=== PATIENT | female | born 1940 | race Caucasian/White ===

== ENCOUNTER → 2017-06-28 06:42 | Outpatient (CLI) | payer MEDICARE, OTHER, SELFPAY ==
--- NOTE | 2017-06-28 06:44 | ECHOD_ITS ---
Reason For Study: CHEST PAIN Procedure This was a 2D Doppler, Color Flow transthoracic echocardiogram. Exam performed in department. Left Ventricle Normal LV size. Left ventricular systolic function is normal. The estimated ejection fraction is 55 %. No evidence for diastolic dysfunction. No regional wall motion abnormalities noted. Right Ventricle Normal RV size. Normal systolic function. Atria Normal left atrium. Normal right atrium. Mitral Valve Normal mitral valve. Tricuspid Valve Normal tricuspid valve. Mild (1+) tricuspid valve insufficiency. Pulmonary artery systolic pressure is 28 mmHg. Aortic Valve Trisinus/trileaflet aortic valve. Mild diffuse aortic valve thickening. Mild (1+) aortic valve insufficiency. Pulmonic Valve Normal pulmonic valve. Great Vessels Normal aortic root. The pulmonary artery is normal size. Normal inferior vena cava. Pericardium/Pleural No pericardial effusion. MMode/2D Measurements & Calculations LVIDd: 4.9 cm IVSd: 1.0 cm Ao root diam: 2.7 cm LVIDs: 3.3 cm LVPWd: 1.0 cm LA dimension: 3.2 cm RVDd: 3.2 cm FS: 32.2 % LAV(MOD-bp): 49.5 ml LA A4 area: 14.9 cm2 RA A4 area: 16.5 cm2 LAV(MOD-bp) Indexed: 27.6 ml/m2 LAV(MOD-sp2): 54.0 ml LAV(MOD-sp4): 41.3 ml Time Measurements MV dec time: 0.20 sec Doppler Measurements & Calculations MV E max yassine: 59.3 cm/sec Lat Peak E' Yassine: 5.7 cm/sec Med Peak E' Yassine: 6.3 cm/sec MV A max yassine: 91.1 cm/sec E/E' lat: 10.4 E/E' med: 9.5 MV E/A: 0.65 Ao V2 max: 135.8 cm/sec AI max ysasine: 530.1 cm/sec LV V1 max: 104.6 cm/sec Ao max P.4 mmHg AI max P.5 mmHg LV V1 max P.4 mmHg AI dec slope: 315.9 cm/sec2 AI P1/2t: 491.5 msec PA V2 max: 75.4 cm/sec TR max yassine: 242.5 cm/sec TR max P.7 mmHg Interpretation Summary Normal LV size. Left ventricular systolic function is normal. The estimated ejection fraction is 55 %. No evidence for diastolic dysfunction. Mild (1+) aortic valve insufficiency. Ordering Physician: Osvaldo Calhoun Referring Physician: Rich Ellis M.D. Performed By: Christine Gipson, NAY, RVT
--- NOTE | 2017-06-28 09:45 | RAD_ITS ---
XR Chest 2 Views INDICATION: CHEST PAIN, RBBB COMPARISON: None FINDINGS: Heart size and pulmonary vascularity are within normal limits. The lungs are clear without evidence of airspace consolidation or pleural effusion. The osseous structures are grossly unremarkable. RAD/Chest PA and Lateral IMPRESSION: No radiographic evidence of acute intrathoracic disease. at 1814 Reported and signed by: Ramona Oakes MD Electronically Signed: Ramona Oakes MD at 17:13 EST Tel , Service support ,
--- NOTE | 2017-06-28 14:16 | STRESSREP_ITS ---
Stress Test Report Exercise myocardial perfusion stress test. 77-year-old lady with a history of abnormal EKG. Stress protocol: Resting EKG demonstrates sinus rhythm with rate of 60 bpm right bundle branch block. The resting blood pressure is 146/80 mmHg. The patient exercised according to the regular Marc protocol for a total duration of 6 minutes completing stage II of the Marc protocol. The maximum heart rate attained was 151 beats minute which is 107% of the maximum predicted heart rate the maximum workload attained was 7 metabolic equivalents. At rest there were no ST or T- wave changes noted suggest ischemia at peak exercise no ST or T-wave changes were noted suggest ischemia. No clinical angina was noted the test was terminated due to leg fatigue. The resting blood pressure is 146/80 with a peak blood pressure 178/98 mmHg. The rate pressure product was 24,700. Myocardial perfusion protocol: 11.7 mCi of technetium 99m sestamibi was injected at rest. The patient exercised for 6 minutes attaining 107% maximum predicted heart rate and at peak exercise 33.4 mCi of technetium 99m sestamibi was injected. Stress images were obtained. Stress and rest images were reconstructed and compared in the short axis vertical long and horizontal long axis. Gated images were also obtained. Perfusion SPECT analysis: Review of the stress images demonstrate normal uptake of tracer noted in all areas of the myocardium. A thin portion of the apex has mildly reduced perfusion on the stress and resting images. No reversibility is noted suggest ischemia no previous infarct is noted. Gated SPECT analysis: The gated ejection fraction is noted be 59%. Conclusion: Exercise myocardial perfusion stress test with no evidence of ischemia at a moderate workload. Preserved ejection fraction.
== END ==
PROVIDERS: Family Provider Internal Medicine; PCP Internal Medicine; Visit Provider Internal Medicine Cardiovascular Disease
DX: R07.89 Other chest pain (principal); I45.10 Unspecified right bundle-branch block
CPT/HCPCS: 71046; 78452; 93017; 93306; A9500; A4216

== ENCOUNTER → 2018-07-11 07:48 | Outpatient (CLI) | payer MEDICARE, OTHER, SELFPAY ==
[2018-07-05 15:28] VITALS: BMI 25.7
[2018-07-11 10:11] LABS: Absolute Lymphocyte Count 2.08 X10^3/ul (0.83-4.51); Absolute Neutrophil Count 2.2 X10^3/uL (2.0-7.7); Basophil# 0.05 X10^3/uL; Eosinophil# 0.17 X10^3/uL; Eosinophils% 3.3 % (0-5); Hematocrit 40.7 % (37-47); Hemoglobin 13.4 g/dl (12.0-15.0); Lymphocyte # 2.08 X10^3/ul (4.0); Lymphocyte % 40.2 % (19-41); Mean Corp Hgb Conc 32.9 g/gl (32-36); Mean Corpuscular Hgb 31.2 pg (27.0-32.0); Mean Corpuscular Volume 94.9 fL (81-99); Mean Platelet Vol. 10.2 fl (6.2-12.0); Monocyte% 13.5 % (0-10); Neutrophil # 2.17 X10^3/uL (2.7-7.7); Neutrophil % 41.8 % (47-70); Platelet Count 203 K/mm3 (150-450); RBC Distribution Width CV 12.3 % (11.6-14.6); RBC Distribution Width SD 41.8 fl (35.1-43.9); Red Blood Count 4.29 M/mm3 (4.2-5.4); White Blood Count 5.2 K/mm3 (4.4-11.0)
[2018-07-11 10:13] LABS: POSITIVE COUNT NO; POSITIVE DIFFERENTIAL NO; POSITIVE MORPHOLOGY NO
[2018-07-11 10:44] LABS: ALB/GLOB Ratio 1.2 RATIO (0.9-2.4); AST(SGOT) 27 U/L (15-37); Alanine Aminotransfer ALT/SGPT 26 U/L (13-56); Albumin, Serum 3.8 g/dL (3.2-5.0); Alkaline Phosphatase 45 U/L (45-117); Anion Gap 7 (5-15); BUN 14 mg/dL (7-18); BUN/Creat Ratio 16.2 RATIO (10-20); Calcium,Total 8.8 mg/dL (8.5-10.1); Chloride 103 mmol/L (98-107); Cholesterol 231 mg/dL (200); Creatinine, Serum 0.86 mg/dL (0.55-1.02); EST Glomerular Filtration Rate 67 mL/min (>60); Est Glom Filt Rate - Afr Amer 81 mL/min (>60); Ferritin 89 ng/mL (8-252); Globulin 3.2 g/dL (2.2-4.2); Glucose 87 mg/dL (74-106); High Density Lipoprotein 97 mg/dL; Potassium 3.8 mmol/L (3.5-5.1); Sodium Level 139 mmol/L (136-145); Thyroid Stim Hormone (TSH) 4.43 uIU/mL (0.358-3.74); Triglycerides 76 mg/dL; Very Low Density Lipoprotein 15 mg/dL (5-40)
[2018-07-11 10:55] LABS: Vitamin D,25 Hydroxy 29.8 ng/mL (29.95-100.01)
== END ==
PROVIDERS: Family Provider Family Medicine; PCP Family Medicine; Referring Provider Family Medicine; Visit Provider Family Medicine
DX: R07.89 Other chest pain (principal); M81.0 Age-related osteoporosis without current pathological fracture; I10 Essential (primary) hypertension; D64.9 Anemia, unspecified; Z87.19 Personal history of other diseases of the digestive system
CPT/HCPCS: 36415; 80053; 80061; 82306; 82728; 84443; 85025

== ENCOUNTER → 2018-08-21 | Outpatient (CLI) | payer MEDICARE, OTHER, SELFPAY ==
[2018-07-05 15:28] VITALS: BMI 25.7
--- NOTE | 2018-08-21 13:35 | BI_ITS ---
MAMMOGRAPHY - BILATERAL SCREENING REASON FOR EXAM: Female, 78 years old. Routine annual screening examination. PERTINENT HISTORY: Non-contributory. TECHNIQUE: Digital bilateral breast silvana (3D mammographic acquisition) in the CC and MLO projections. 2-D mediolateral oblique (MLO) and craniocaudad (CC) views of both breasts were obtained. CAD: Full Field Digital Mammography with Computer Added Detection was performed. COMPARISON: No comparison mammograms available at this time. If any prior films become available, an addendum to this report can be generated. FINDINGS: Breast Composition: There are scattered areas of fibroglandular density. There are no dominant masses or suspicious calcifications. No other significant abnormalities are identified. BI/SCREENING MAMM (CAD), BILAT IMPRESSION: Negative screening mammogram. Yearly followup mammogram recommended. (A) ASSESSMENT CATEGORY: BIRADS Category 1: Negative. A letter regarding these results will be sent to the patient by the facility within 30 days. Approximately 10% of breast cancers are not detected by mammography. A normal mammogram should not delay biopsy of a clinically suspicious abnormality. [id number] Electronically Signed: Sha Benito, at 10:06 EDT , Service support ,
== END | disposition home or self-care (01) ==
LOC: OPBI 13:34
PROVIDERS: Family Provider Family Medicine; PCP Family Medicine; Referring Provider Family Medicine; Visit Provider Family Medicine
DX: Z12.31 Encounter for screening mammogram for malignant neoplasm of breast (principal)
CPT/HCPCS: 77063; 77067

== ENCOUNTER → 2019-04-11 08:10 | Outpatient (CLI) | payer MEDICARE, OTHER, SELFPAY ==
[2019-01-16 14:02] VITALS: BMI 25.2
[2019-04-11 11:08] LABS: ALB/GLOB Ratio 1.3 RATIO (0.9-2.4); AST(SGOT) 22 U/L (15-37); Alanine Aminotransfer ALT/SGPT 24 U/L (13-56); Albumin, Serum 3.8 g/dL (3.2-5.0); Alkaline Phosphatase 48 U/L (45-117); Anion Gap 6 (5-15); BUN 28 mg/dL (7-18); BUN/Creat Ratio 26.9 RATIO (10-20); Calcium,Total 9.3 mg/dL (8.5-10.1); Chloride 108 mmol/L (98-107); Cholesterol 200 mg/dL (200); Creatinine, Serum 1.04 mg/dL (0.55-1.02); EST Glomerular Filtration Rate 54 mL/min (>60); Est Glom Filt Rate - Afr Amer 65 mL/min (>60); Globulin 2.9 g/dL (2.2-4.2); Glucose 94 mg/dL (74-106); High Density Lipoprotein 103 mg/dL; Potassium 3.9 mmol/L (3.5-5.1); Protein, Total 6.7 g/dL (6.4-8.2); Sodium Level 141 mmol/L (136-145); Thyroid Stim Hormone (TSH) 4.55 uIU/mL (0.358-3.74); Triglycerides 53 mg/dL; Very Low Density Lipoprotein 11 mg/dL (5-40)
== END ==
PROVIDERS: Family Provider Family Medicine; PCP Family Medicine; Referring Provider Family Medicine; Visit Provider Family Medicine
DX: I10 Essential (primary) hypertension (principal); E78.5 Hyperlipidemia, unspecified
CPT/HCPCS: 36415; 80053; 80061; 84443

== ENCOUNTER → 2019-05-13 10:02 | Outpatient (CLI) | payer MEDICARE, OTHER, SELFPAY ==
[2019-01-16 14:02] VITALS: BMI 25.2
--- NOTE | 2019-05-13 10:07 | RAD_ITS ---
STUDY: X-RAY - RIGHT HAND, ATTENTION INDEX FINGER REASON FOR EXAM: Pain and swelling of the right second PIP joint for about 5 weeks. TECHNIQUE: 3 view(s) of the finger were obtained. COMPARISON: None. FINDINGS: Normal metacarpal head. Normal metacarpophalangeal joint. Normal proximal phalanx. Normal middle phalanx. Normal distal phalanx. There are marginal osteophytes, severe joint space narrowing and subchondral cystic change of the proximal interphalangeal joint. There is a small dorsal osteophyte and mild joint space narrowing of the distal interphalangeal joint. There is soft tissue swelling at the proximal interphalangeal joint. 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 Soft tissue swelling. Electronically Signed: Zachary Vieyra MD at 12:52 EST Tel , Service support ,
== END ==
PROVIDERS: PCP Family Medicine; Referring Provider Family Medicine; Visit Provider Family Medicine
DX: M25.441 Effusion, right hand (principal)
CPT/HCPCS: 73140

== ENCOUNTER → 2019-09-17 12:38 | Outpatient (CLI) | payer MEDICARE, OTHER, SELFPAY ==
[2019-07-24 13:16] VITALS: BMI 24.7
--- NOTE | 2019-09-17 12:41 | BI_ITS ---
MAMMOGRAPHY - BILATERAL SCREENING REASON FOR EXAM: Female, 79 years old. Routine annual screening examination. PERTINENT HISTORY: Non-contributory. TECHNIQUE: Digital bilateral breast elvia (3D mammographic acquisition) in the CC and MLO projections. 2-D mediolateral oblique (MLO) and craniocaudad (CC) views of both breasts were obtained. CAD: Full Field Digital Mammography with Computer Added Detection was performed. COMPARISON: Comparison is made with prior examination dated August 21, 2018. FINDINGS: Breast Composition: There are scattered areas of fibroglandular density. There are no dominant masses or suspicious calcifications. No other significant abnormalities are identified. There has been no significant change since the prior study. BI/SCREEN MAMM (CAD) W/ELVIA BILAT IMPRESSION: Stable bilateral screening mammogram. Yearly follow-up mammogram recommended. (A) ASSESSMENT CATEGORY: BIRADS Category 1: Negative. A letter regarding these results will be sent to the patient by the facility within 30 days. Approximately 10% of breast cancers are not detected by mammography. A normal mammogram should not delay biopsy of a clinically suspicious abnormality. [id number] Electronically Signed: Sha Benito, at 15:06 EDT , Service support ,
== END ==
PROVIDERS: PCP Family Medicine; Referring Provider Family Medicine; Visit Provider Family Medicine
DX: Z12.31 Encounter for screening mammogram for malignant neoplasm of breast (principal)
CPT/HCPCS: 77063; 77067

== ENCOUNTER 2020-05-14 11:00 | Outpatient (RCR) | payer MEDICARE, OTHER, SELFPAY ==
[2020-01-22 08:47] VITALS: BMI 25.0
== END 2020-05-14 23:59 ==
LOC: IMMUN 11:00
PROVIDERS: PCP Family Medicine; Visit Provider Family Medicine
DX: Z23 Encounter for immunization (principal)
CPT/HCPCS: 0011A; 0012A; 91301

== ENCOUNTER → 2020-07-28 15:23 | Outpatient (CLI) | payer MEDICARE, OTHER, SELFPAY ==
[2020-01-22 08:47] VITALS: BMI 25.0
[2020-07-28 18:37] LABS: Anion Gap 6 (5-15); BUN 34 mg/dL (7-18); BUN/Creat Ratio 34.3 RATIO (10-20); Calcium,Total 9.9 mg/dL (8.5-10.1); Chloride 98 mmol/L (98-107); Creatinine, Serum 0.99 mg/dL (0.55-1.02); EST Glomerular Filtration Rate 57 mL/min (>60); Est Glom Filt Rate - Afr Amer 69 mL/min (>60); Glucose 87 mg/dL (74-106); Magnesium 2.2 mg/dL (1.6-2.6); Potassium 3.8 mmol/L (3.5-5.1); Sodium Level 134 mmol/L (136-145)
== END ==
PROVIDERS: PCP Family Medicine; Visit Provider Family Medicine
DX: I10 Essential (primary) hypertension (principal)
CPT/HCPCS: 36415; 80048; 83735

== ENCOUNTER 2020-10-30 08:20 | Emergency (ER) | payer MEDICARE, OTHER, SELFPAY ==
[2020-01-22 08:47] VITALS: BMI 25.0
[2020-10-30 08:21] VITALS: BP 182/95; PULSE 72; RESP 16; TEMP 36.4; O2SAT 98; BMI 24.3
--- NOTE | 2020-10-30 08:23 | RAD_ITS ---
STUDY: X-RAY - RIGHT KNEE REASON FOR EXAM: Anterior right knee pain status post right knee injury. TECHNIQUE: 4 view(s) of the knee. COMPARISON: None. FINDINGS: There is a right total knee arthroplasty without demonstrated periprosthetic fracture. There is a foreign body at the lateral aspect of the knee, questioned surgical sponge. There is vascular calcification. RAD/Knee 4 or More Views IMPRESSION: Right total knee arthroplasty without demonstrated periprosthetic fracture or dislocation. Foreign body at the lateral aspect of the knee, questioned surgical sponge. Electronically Signed: Zachary Vieyra MD at 9:34 EDT Tel , Service support ,
--- NOTE | 2020-10-30 08:24 | EDS_ITS ---
HPI History of Present Illness Chief Complaint: Lower Extremity Injury Narrative Narrative: 80-year-old female presenting with right knee pain. She states she has had a knee replacement on her right knee and stated that she was doing lunge exercises during physical therapy to try to loosen up her left knee and improve her range of motion. When she was doing these exercises her right knee started to hurt. She describes as a sharp pain. She denies any tearing sensation or popping. She states she is unable to bear weight on her leg due to pain. She is unable to extend her knee straight. 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 Calles ordered an ultrasound of her leg to ensure that that is all this was and found some floating material which the patient describes as plastic in her postoperative knee on the right. He stated that they may have to go back into the previous incision and remove some these pieces. There is no plan to date for this. [facility] Medical History Actinic keratitis Age-related osteoporosis without current pathological fracture Arrhythmia Essential (primary) hypertension Hyperlipidemia Osteoarthritis Right bundle branch block (RBBB) with left anterior fascicular block Sciatica Home Medications alendronate 70 mg tablet 70 mg PO QWEEK 06/06/17 [History Last Taken Unknown] atorvastatin 20 mg tablet 20 mg PO QHS tab 06/06/17 [History Last Taken Unknown] diclofenac sodium 1 % topical gel 2 g TOPICAL ONCE 06/06/17 [History Last Taken Unknown] lisinopril 40 mg tablet 40 mg PO DAILY #90 tab 01/16/19 [Rx Last Taken Unknown] multivitamin with minerals 1 cap PO DAILY 07/24/19 [History Last Taken Unknown] omega-3 fatty acids 1,000 mg capsule 1,000 mg PO DAILY 07/24/19 [History Last Taken Unknown] amlodipine 5 mg PO DINNER 10/30/20 [History Last Taken Unknown] Allergy/AdvReac Type Severity Reaction Status Date / Time No Known Allergies Allergy Verified 10/30/20 08:26 Family History Mother Heart disease heart failure age 87 Sister Guillain Saldaña? syndrome Surgical History History of bilateral knee replacement (~2007) mohs procedure right worship Social History Smoking Status: Never smoker alcohol intake: current alcohol intake frequency: a few times a month Alcohol type: wine ROS ROS ED Constitutional Constitutional ED: Denies chills, fever(s) or sweats Eyes Eyes: Denies blurry vision or diplopia ENT ENT ED: Denies rhinorrhea or sore throat Cardiovascular Cardiovascular: Denies chest pain or palpitations Respiratory/Chest Respiratory/Chest: Denies cough or dyspnea Gastrointestinal Gastrointestinal: Denies abdominal pain, nausea or vomiting Genitourinary Genitourinary ED: Denies dysuria or hematuria Musculoskeletal Musculoskeletal: Reports other Details: Right knee pain with inability to extend fully ; Denies myalgias Integumentary Denies abscess or rash Neurologic Neurologic: Denies headache(s) or paresthesias Psychiatric Psychiatric: Denies anxiety or depression EXAM Physical Exam Const Vital Signs: 10/30/20 08:21 10/30/20 11:44 Temperature 97.6 F L Temperature Source Oral Pulse Rate 72 Respiratory Rate 16 16 Blood Pressure 182/95 H Blood Pressure Mean 124 Pulse Ox 98 Oxygen Delivery Method Room Air Positive well nourished General Appearance ED: NAD HEENT normocephalic and atraumatic Eyes PERRL Resp normal respiratory effort and no retractions Cardio regular rate and regular rhythm Extremity Right Lower Extremity: knee joint inspection (Flexed knee which appears swollen or deformed on the right) and ROM (Limited range of motion of the right knee and extension and flexion) Neuro oriented x3 Sensorium / Orientation: alert Psych mental status grossly normal Skin Lesions: no lesions Rashes: no rashes MDM MDM MDM Narrative Medical decision making narrative: Patient presenting with right knee pain. She states he is unable to fully extend the knee. This happened acutely while doing lunges. I obtained 4 views of the right knee which interpreted by myself initially looks like there is a foreign body in the lateral aspect of the knee. The radiologist did comment on this as well. He thought it was a surgical sponge. After speaking with Dr. Calles about the patient and reviewing the films he asked if the patient had her pants on during the x-ray and I went to evaluate the patient and she had her pants pulled up around her knee and she has a reflective area that is attached to her pants that is adjacent to this area. At this point I repeated the x-ray the knee and on my interpretation I see no acute abnormality. She is status post total knee arthroplasty. Upon reevaluating the patient she states that her knee popped and she was able to extend it now and she has been ambulatory and she feels like she can go home. Patient was placed in an Mario wrap around her knee. She is counseled to ice this. She is counseled not to do any extreme flexion or extension. She was offered a walker just in case however she does not want this. Patient discharged home in stable condition. Impression: 1. Right knee strain Radiography Diagnostic Testing: Radiology Impression Knee X-Ray 10/30/20 08:23 IMPRESSION: Right total knee arthroplasty without demonstrated periprosthetic fracture or dislocation. Foreign body at the lateral aspect of the knee, questioned surgical sponge. Electronically Signed: Zachary Vieyra MD at 9:34 EDT Tel , Service support , Knee X-Ray 10/30/20 10:30 IMPRESSION: Right total knee arthroplasty without evidence of complication. Small joint effusion. Electronically Signed: Zachary Vieyra MD at 11:13 EDT Tel , Service support , Discharge Plan Triage Chief Complaint: Lower Extremity Injury ED Provider: Pedro Thomas Dx/Rx/DC Orders Instructions: ED Knee Sprain Prescriptions: No Action atorvastatin 20 mg tablet 20 mg PO QHS RF: 0 alendronate 70 mg tablet 70 mg PO QWEEK RF: 0 diclofenac sodium [Voltaren] 1 % gel 2 g TOPICAL ONCE RF: 0 lisinopril 40 mg tablet 40 mg PO DAILY Qty: 90 RF: 5 multivitamin with minerals Capsule 1 cap PO DAILY RF: 0 omega-3 fatty acids [Fish Oil Concentrate] 1,000 mg capsule 1,000 mg PO DAILY RF: 0 amlodipine 5 mg tablet 5 mg PO DINNER RF: 0 Primary Care Provider: Eliot Clinton Referrals: Eliot Clinton MD [Primary Care Provider] - Carlos Calles MD [STAFF PHYSICIAN] - As soon as possible Disposition Disposition: Home, Self Care Discharge Date/Time: 10/30/20 11:44
[2020-10-30] MEDS: HYDROcodone Bitartrate/Apap 5/325 Tablet PO (08:28)
--- NOTE | 2020-10-30 10:30 | RAD_ITS ---
STUDY: X-RAY - RIGHT KNEE REASON FOR EXAM: Right knee pain, popping twice since earlier radiographs. TECHNIQUE: 3 view(s) of the knee. COMPARISON: Radiographs obtained earlier today. FINDINGS: There is a right total knee arthroplasty without evidence of complication. There is a small joint effusion. There is vascular calcification. The previously described foreign body is not apparent on the current study. RAD/Knee 3 Views IMPRESSION: Right total knee arthroplasty without evidence of complication. Small joint effusion. Electronically Signed: Zachary Vieyra MD at 11:13 EDT Tel , Service support ,
[2020-10-30 11:44] VITALS: RESP 16
== END 2020-10-30 11:44 | disposition home or self-care (01) ==
PROVIDERS: Emergency Provider Student in an Organized Health Care Education/Training Program; PCP Family Medicine
DX: S83.91XA Sprain of unspecified site of right knee, initial encounter (principal); X58.XXXA Exposure to other specified factors, initial encounter; Y93.B9 Activity, other involving muscle strengthening exercises; Y92.9 Unspecified place or not applicable; I10 Essential (primary) hypertension; E78.5 Hyperlipidemia, unspecified; M19.90 Unspecified osteoarthritis, unspecified site; Z96.651 Presence of right artificial knee joint; Z79.899 Other long term (current) drug therapy
CPT/HCPCS: 73562; 73564; 99284

== ENCOUNTER 2021-06-08 14:59 | Outpatient (CLI) | payer MEDICARE, OTHER, SELFPAY ==
[2021-06-08 17:58] LABS: Color, Urine Yellow (Yellow); Glucose, Dipstick Normal (Normal); Ketone-Dipstick Negative (Negative); Leukocyte Esterase-Dipstick Negative /ul (Negative); Nitrite-Dipstick Negative (Negative); Occult Blood-Urine Negative /ul (Negative); Protein-Dipstick Negative (Negative); Urine Bilirubin Dipstick Negative (Negative); Urine Clarity Sl. Cloudy (Clear); Urine Urobilinogen Normal (Normal)
== END 2021-06-08 23:59 | disposition home or self-care (01) ==
LOC: LABSPEC 15:04
PROVIDERS: PCP Family Medicine; Referring Provider Family Medicine; Visit Provider Family Medicine
DX: I10 Essential (primary) hypertension (principal)
CPT/HCPCS: 81002

== ENCOUNTER 2021-07-06 11:17 | Outpatient (CLI) | payer MEDICARE, OTHER, SELFPAY ==
--- NOTE | 2021-07-06 11:25 | RAD_ITS ---
INDICATION: COUGH EXAMINATION/TECHNIQUE: X-RAY - XR Chest 2 Views COMPARISON: Chest radiograph from 06/28/2017. FINDINGS: Support devices: None. Mildly hyperinflated lungs. No focal consolidations, effusions, or sizable pneumothorax. Cardiomediastinal silhouette is within normal limits. Atherosclerotic calcifications in the aorta. No acute findings in the bones or soft tissues. RAD/Chest PA and Lateral IMPRESSION: No acute findings. Electronically Signed: Dylon Crum, at 16:43 EDT ,
== END 2021-07-06 23:59 | disposition home or self-care (01) ==
PROVIDERS: PCP Family Medicine; Referring Provider Family Medicine; Visit Provider Family Medicine
DX: R05.8 Other specified cough (principal)
CPT/HCPCS: 71046; 87070; 87205

== ENCOUNTER → 2021-08-23 | Outpatient (CLI) | payer MEDICARE, OTHER, SELFPAY | END | disposition home or self-care (01) | LOC: MFPLAB 10:19 | PROVIDERS: PCP Family Medicine; Visit Provider Family Medicine | DX: R05.9 Cough, unspecified (principal) | CPT/HCPCS: 87015; 87070; 87077; 87101; 87116; 87205; 87206 ==

== ENCOUNTER → 2021-11-08 | Outpatient (CLI) | payer MEDICARE, OTHER, SELFPAY ==
--- NOTE | 2021-11-08 10:38 | PFTCOMP_ITS ---
COMPLETE PULMONARY FUNCTION TEST INTERPRETATION Brief HPI: Patient is an 81 -year-old female, currently under the care of Dr. Mcfadden, who presents to [facility] for complete pulmonary function tests secondary to diagnosis of COPD. Respiratory therapist reports good effort and reproducible results. Interpretation: Forced expiration spirometry shows no large airways obstructive ventilatory defect with an FEV1 of 135% predicted. There is no significant bronchodilator response by strict ATS criteria. Spirograms are of good quality and plateau normally. The respiratory flow volume loop shows a normal pattern. Lung volumes by body plethysmography show a normal total lung capacity at 5.91 L, 116% predicted. All other lung volumes are within normal limits. Diffusion capacity by carbon monoxide is normal at 100% predicted. The airway resistance is normal. No previous pulmonary function tests were available for review. Impression: These pulmonary function tests are within normal limits
== END | disposition home or self-care (01) ==
LOC: PSN 07:47
PROVIDERS: PCP Family Medicine; Referring Provider Internal Medicine Critical Care Medicine; Visit Provider Internal Medicine Critical Care Medicine
DX: R05.3 Chronic cough (principal)
CPT/HCPCS: 94060; 94726; 94729

== ENCOUNTER → 2022-01-10 | Outpatient (CLI) | payer MEDICARE, OTHER, SELFPAY ==
[2022-01-10 09:36] LABS: AST(SGOT) 21 U/L (15-37); Alanine Aminotransfer ALT/SGPT 24 U/L (13-56); Albumin, Serum 3.7 g/dL (3.2-5.0); Alkaline Phosphatase 46 U/L (45-117); Anion Gap 7 (5-15); BUN 25 mg/dL (7-18); BUN/Creat Ratio 31.8 RATIO (10-20); Bilirubin, Direct 0.13 mg/dL (0.00-0.30); Calcium,Total 9.3 mg/dL (8.5-10.1); Chloride 107 mmol/L (98-107); Cholesterol 193 mg/dL (200); Creatinine, Serum 0.79 mg/dL (0.55-1.02); EST Glomerular Filtration Rate 74 mL/min (>60); Est Glom Filt Rate - Afr Amer 90 mL/min (>60); Globulin 3.7 g/dL (2.2-4.2); Glucose 90 mg/dL (74-106); High Density Lipoprotein 103 mg/dL; Potassium 4.1 mmol/L (3.5-5.1); Protein, Total 7.4 g/dL (6.4-8.2); Sodium Level 144 mmol/L (136-145); Thyroid Stim Hormone (TSH) 4.01 uIU/mL (0.358-3.74); Triglycerides 40 mg/dL; Very Low Density Lipoprotein 8 mg/dL (5-40)
== END | disposition home or self-care (01) ==
LOC: LAB 08:09
PROVIDERS: PCP Family Medicine; Referring Provider Internal Medicine Cardiovascular Disease; Visit Provider Internal Medicine Cardiovascular Disease
DX: E78.00 Pure hypercholesterolemia, unspecified (principal)
CPT/HCPCS: 36415; 80048; 80061; 80076; 84443

== ENCOUNTER → 2022-09-22 | Outpatient (CLI) | payer MEDICARE, OTHER, SELFPAY ==
--- NOTE | 2022-09-22 14:23 | BI_ITS ---
MAMMOGRAPHY - BILATERAL SCREENING REASON FOR EXAM: Female, 82 years old. Routine annual screening examination. PERTINENT HISTORY: Non-contributory. TECHNIQUE: Digital bilateral breast elvia (3D mammographic acquisition) in the CC and MLO projections. 2-D mediolateral oblique (MLO) and craniocaudad (CC) views of both breasts were obtained. CAD: Full Field Digital Mammography with Computer Added Detection was performed. COMPARISON: Comparison is made with prior study dated September 17, 2019 and August 21, 2018. FINDINGS: Breast Composition: There are scattered areas of fibroglandular density. There are no dominant masses or suspicious calcifications. No other significant abnormalities are identified. There has been no significant change since the prior study. BI/SCRN MAMM (CAD)W/ELVIA BILAT IMPRESSION: Stable bilateral screening mammogram. Yearly follow-up mammogram recommended. (A) ASSESSMENT CATEGORY: BIRADS Category 1: Negative. A letter regarding these results will be sent to the patient by the facility within 30 days. Approximately 10% of breast cancers are not detected by mammography. A normal mammogram should not delay biopsy of a clinically suspicious abnormality. [id number] Electronically Signed: Sha Benito MD at 15:33 EDT ,
--- NOTE | 2022-09-22 14:31 | BD_ITS ---
STUDY: DUAL ENERGY X-RAY ABSORPTIOMETRY / DXA REASON FOR EXAM: Female, 82 years old. [id number] TECHNIQUE: Bone Mineral Density (BMD) measurements of lumbar spine and bilateral hips were obtained. COMPARISON: None. FINDINGS: Lumbar Spine (L1-L4): g/cm2 (0.791) / T-score (-1.7) / Z-score (0.9) Findings are suggestive of osteopenia with a moderate fracture risk. Left Femur Total: g/cm2 (0.784) / T-score (-1.3) / Z-score (1.0) Left Femoral Neck: g/cm2 (0.681) / T-score (-1.5) / Z-score (1.0) Right Femur Total: g/cm2 (0.780) / T-score (-1.3) / Z-score (1.0) Right Femoral Neck: g/cm2 (0.651) / T-score (-1.8) / Z-score (0.7) BD/Dexa Bone Density Study IMPRESSION: The patient is considered osteopenic as outlined below according to World John Organization (WHO) criteria with a moderate fracture risk. Reference Information: The T-score is the number of standard deviations above or below the standard which is normal for young adults at their peak bone mineral density. The World Health Organization (WHO) interprets the T-scores as follows: Above -1 Normal bone density Between -1 and -2.5 Osteopenia Equal to / or below -2.5 Osteoporosis As a practical clinical guideline, osteopenia may be graded as follows: Mild -1 through -1.5 Moderate -1.6 through -2.0 Severe -2.1 through -2.4 The Z-score is the number of standard deviations above or below age-matched controls. A Z-score of less than -1.5 would be considered abnormal. References: 1. NIH Osteoporosis and Related Bone Diseases www osteo.org 2. International Society for Clinical Densitometry www iscd.org 3. National Osteoporosis Foundation www nof.org Electronically Signed: Sha Benito MD at 14:52 EDT ,
== END | disposition home or self-care (01) ==
LOC: OPBD 14:20
PROVIDERS: PCP Family Medicine; Referring Provider Family Medicine; Visit Provider Family Medicine
DX: Z12.31 Encounter for screening mammogram for malignant neoplasm of breast (principal); M81.0 Age-related osteoporosis without current pathological fracture
CPT/HCPCS: 77063; 77067; 77080

== ENCOUNTER → 2023-08-29 | Outpatient (CLI) | payer MEDICARE, OTHER, SELFPAY ==
[2023-08-29 15:45] LABS: Absolute Lymphocyte Count 1.82 X10^3/uL (0.83-4.51); Absolute Neutrophil Count 3.2 X10^3/uL (2.0-7.7); Basophil# 0.03 X10^3/uL; Basophil% 0.5 % (0-1); Eosinophil# 0.15 X10^3/uL; Eosinophils% 2.5 % (0-5); Hemoglobin 13.4 g/dL (12.0-15.0); Lymphocyte # 1.82 X10^3/ul (0.83-4.51); Lymphocyte % 30.6 % (19-41); Mean Corp Hgb Conc 31.9 g/dL (32-36); Mean Corpuscular Volume 97.2 fL (81-99); Mean Platelet Vol. 10.1 fl (6.2-12.0); Monocyte# 0.69 X10^3/uL; Monocyte% 11.6 % (0-10); NRBC Flagged by Analyzer 0 % (0-5); Neutrophil # 3.24 X10^3/uL (2.7-7.7); Neutrophil % 54.6 % (47-70); Platelet Count 295 K/mm3 (150-450); RBC Distribution Width CV 12.3 % (11.6-14.6); RBC Distribution Width SD 44.2 fl (35.1-43.9); Red Blood Count 4.32 M/mm3 (4.2-5.4); White Blood Count 5.9 K/mm3 (4.4-11.0)
[2023-08-29 16:06] LABS: ALB/GLOB Ratio 1.2 RATIO (0.9-2.4); AST(SGOT) 33 U/L (15-37); Alanine Aminotransfer ALT/SGPT 33 U/L (13-56); Alkaline Phosphatase 44 U/L (45-117); Anion Gap 6 (5-15); BUN 17 mg/dL (7-18); BUN/Creat Ratio 20.4 RATIO (10-20); Chloride 103 mmol/L (98-107); Creatinine, Serum 0.83 mg/dL (0.55-1.02); EST Glomerular Filtration Rate 69 mL/min (>60); Est Glom Filt Rate - Afr Amer 84 mL/min (>60); Globulin 3.3 g/dL (2.2-4.2); Glucose 99 mg/dL (74-106); Potassium 3.9 mmol/L (3.5-5.1); Protein, Total 7.3 g/dL (6.4-8.2); Sodium Level 139 mmol/L (136-145)
[2023-08-29 16:14] LABS: PTHIN 26.3 pg/mL (18.4-80.1)
[2023-08-29 16:18] LABS: Vitamin D,25 Hydroxy 58.6 ng/mL
[2023-08-30 11:48] LABS: Microalbumin,Random Urine 20.2 mg/L (NO RANGE EST.); Microalbumin:Creatinine Ratio 23.7 mg/g CRE (<30 mg/g CRE)
== END | disposition home or self-care (01) ==
LOC: MFPLAB 11:52
PROVIDERS: PCP Family Medicine; Visit Provider Family Medicine
DX: M81.0 Age-related osteoporosis without current pathological fracture (principal); I10 Essential (primary) hypertension; J45.909 Unspecified asthma, uncomplicated
CPT/HCPCS: 36415; 80053; 82043; 82306; 82570; 83970; 85025

== ENCOUNTER → 2023-10-16 | Outpatient (CLI) | payer MEDICARE, OTHER, SELFPAY ==
--- NOTE | 2023-10-16 15:02 | BI_ITS ---
MAMMOGRAPHY - BILATERAL SCREENING REASON FOR EXAM: Female, 83 years old. Routine annual screening examination. PERTINENT HISTORY: Non-contributory. TECHNIQUE: Digital bilateral breast elvia (3D mammographic acquisition) in the CC and MLO projections. 2-D mediolateral oblique (MLO) and craniocaudad (CC) views of both breasts were obtained. CAD: Full Field Digital Mammography with Computer Added Detection was performed. COMPARISON: Comparison is made with prior study of September 22, 2022 and September 17, 2019. FINDINGS: Breast Composition: The breasts are heterogeneously dense, which may obscure small masses. There are no dominant masses or suspicious calcifications. No other significant abnormalities are identified. There has been no significant change since the prior study. BI/SCRN MAMM (CAD)W/ELVIA BILAT IMPRESSION: Stable bilateral screening mammogram. Yearly follow-up mammogram recommended. (A) ASSESSMENT CATEGORY: BIRADS Category 1: Negative. A letter regarding these results will be sent to the patient by the facility within 30 days. Approximately 10% of breast cancers are not detected by mammography. A normal mammogram should not delay biopsy of a clinically suspicious abnormality. [id number] Electronically Signed: Sha Benito MD at 15:40 EDT ,
== END | disposition home or self-care (01) ==
LOC: OPBI 15:02
PROVIDERS: PCP Family Medicine; Referring Provider Family Medicine; Visit Provider Family Medicine
DX: Z12.31 Encounter for screening mammogram for malignant neoplasm of breast (principal)
CPT/HCPCS: 77063; 77067

== ENCOUNTER → 2024-03-01 | Outpatient (CLI) | payer MEDICARE, OTHER, SELFPAY ==
[2024-03-01 13:11] LABS: Anion Gap 3 (5-15); BUN 28 mg/dL (7-18); Calcium,Total 9.3 mg/dL (8.5-10.1); Chloride 108 mmol/L (98-107); Creatinine, Serum 0.82 mg/dL (0.55-1.02); EST Glomerular Filtration Rate 70 mL/min (>60); Est Glom Filt Rate - Afr Amer 85 mL/min (>60); Glucose 92 mg/dL (74-106); Potassium 4.1 mmol/L (3.5-5.1); Sodium Level 140 mmol/L (136-145)
== END | disposition home or self-care (01) ==
LOC: MFPLAB 10:56
PROVIDERS: PCP Family Medicine; Visit Provider Family Medicine
DX: I10 Essential (primary) hypertension (principal)
CPT/HCPCS: 36415; 80048

== ENCOUNTER → 2024-03-13 | Outpatient (CLI) | payer MEDICARE, OTHER, SELFPAY ==
--- NOTE | 2024-03-13 07:46 | ECHOD_ITS ---
Reason For Study: HTN Procedure This was a 2D Doppler, Color Flow transthoracic echocardiogram. Myocardial strain analysis was performed in this exam to aid in the assessment of cardiac function. Exam performed in department. Left Ventricle Normal LV size. The global longitudinal strain = -18.8 % (normal). The left ventricular ejection fraction is 60 %. No regional wall motion abnormalities noted. Right Ventricle Normal RV size. Normal systolic function. Atria Normal left atrium. Normal right atrium. Mitral Valve Normal mitral valve. Tricuspid Valve Normal tricuspid valve. Mild tricuspid valve insufficiency. Right ventricular systolic pressure estimated to be 23 mmHg. Aortic Valve Trisinus/trileaflet aortic valve. Mild focal aortic valve calcification. Mild (1+) eccentric aortic valve insufficiency. Pulmonic Valve Normal pulmonic valve. Trivial pulmonic valve insufficiency. Great Vessels Normal aortic root. The pulmonary artery is normal size. Inferior vena cava collapse with respiration. Pericardium/Pleural No pericardial effusion. MMode/2D Measurements & Calculations LVIDd: 4.9 cm IVSd: 0.98 cm Ao root diam: 3.8 cm LVIDs: 3.3 cm LVPWd: 0.87 cm RVDd: 4.0 cm FS: 32.3 % LAV(MOD-bp): 43.9 ml LVAd ap4: 28.0 cm2 SV(MOD-sp4): 55.7 ml LAV(MOD-bp) Indexed: 25.1 ml/m2 LVLd ap4: 7.0 cm SI(MOD-sp4): 31.8 ml/m2 LAV(MOD-sp2): 46.1 ml EDV(MOD-sp4): 92.4 ml LAV(MOD-sp4): 34.7 ml EDV(sp4-el): 95.8 ml LVAs ap4: 15.9 cm2 LVLs ap4: 5.8 cm ESV(MOD-sp4): 36.8 ml ESV(sp4-el): 36.7 ml EF(MOD-sp4): 60.2 % EF(sp4-el): 61.6 % SV(sp4-el): 59.1 ml LA A4 area: 14.9 cm2 LA dimension(2D): 3.6 cm RA A4 area: 16.2 cm2 TAPSE: 1.8 cm Time Measurements MV dec time: 0.33 sec Doppler Measurements & Calculations MV E max yassine: 62.4 cm/sec Lat Peak E' Yassine: 7.0 cm/sec Med Peak E' Yassine: 6.5 cm/sec MV A max yassine: 89.3 cm/sec E/E' lat: 8.9 E/E' med: 9.6 MV E/A: 0.70 MV V2 max: 102.0 cm/sec MV P1/2t max yassine: 79.1 cm/sec Ao V2 max: 114.0 cm/sec MV max P.2 mmHg MV P1/2t: 121.5 msec Ao max P.2 mmHg MV V2 mean: 53.4 cm/sec Ao V2 mean: 80.1 cm/sec MV mean P.3 mmHg MV dec slope: 190.7 cm/sec2 Ao mean P.9 mmHg MV V2 VTI: 32.6 cm MVA(P1/2t): 1.8 cm2 Ao V2 VTI: 29.7 cm AV (velocity ratio): 0.86 AI max yassine: 519.4 cm/sec LV V1 max: 104.8 cm/sec PA V2 max: 76.2 cm/sec AI max P.0 mmHg LV V1 max P.4 mmHg LV V1 mean P.1 mmHg AI dec slope: 234.8 cm/sec2 LV V1 mean: 66.3 cm/sec AI P1/2t: 647.8 msec LV V1 VTI: 25.6 cm TR max yassine: 228.3 cm/sec TR max P.9 mmHg ECHO/Echo Complete Interpretation Summary Normal LV size. The left ventricular ejection fraction is 60 %. The global longitudinal strain = -18.8 % (normal). Mild (1+) eccentric aortic valve insufficiency. Mild focal aortic valve calcification. Ordering Physician: Osvaldo Calhoun Referring Physician: Eliot Clinton MD Performed By: Dae Alvarez RCS
== END | disposition home or self-care (01) ==
LOC: CVS 07:45
PROVIDERS: PCP Family Medicine; Referring Provider Internal Medicine Cardiovascular Disease; Visit Provider Internal Medicine Cardiovascular Disease
DX: I45.2 Bifascicular block (principal); I49.9 Cardiac arrhythmia, unspecified; I10 Essential (primary) hypertension
CPT/HCPCS: 93306

== ENCOUNTER → 2024-08-16 | Outpatient (CLI) | payer MEDICARE, OTHER, SELFPAY | END | disposition home or self-care (01) | LOC: LABSPEC 16:28 | PROVIDERS: PCP Family Medicine; Referring Provider Obstetrics & Gynecology; Visit Provider Obstetrics & Gynecology | DX: N89.8 Other specified noninflammatory disorders of vagina (principal) | CPT/HCPCS: 87070; 87205 ==

== ENCOUNTER → 2024-09-04 | Outpatient (CLI) | payer MEDICARE, OTHER, SELFPAY ==
[2024-09-04 11:05] LABS: Microalbumin,Random Urine 12.5 mg/L (NO RANGE EST.); Microalbumin:Creatinine Ratio 140.9 mg/g CRE
[2024-09-04 11:08] LABS: ALB/GLOB Ratio 1.9 RATIO (0.9-2.4); AST(SGOT) 24 U/L (<=31); Alanine Aminotransfer ALT/SGPT 18 U/L (<=34); Albumin, Serum 4.2 g/dL (3.4-4.8); Alkaline Phosphatase 46 U/L (35-104); Anion Gap 9 (5-15); BUN 19 mg/dL (4-19); BUN/Creat Ratio 25.7 RATIO (10-20); Calcium,Total 9.5 mg/dL (7.6-11.0); Chloride 105 mmol/L (98-108); Creatinine, Serum 0.74 mg/dL (0.70-1.20); EST Glomerular Filtration Rate 78 (>60); Globulin 2.2 g/dL (2.2-4.2); Glucose 87 mg/dL (70-99); Potassium 4.2 mmol/L (3.3-5.1); Protein, Total 6.4 g/dL (5.9-8.4); Sodium Level 140 mmol/L (133-145); Total Bilirubin 0.34 mg/dL (0.00-1.30)
== END | disposition home or self-care (01) ==
LOC: MFPLAB 08:41
PROVIDERS: PCP Family Medicine; Referring Provider Family Medicine; Visit Provider Family Medicine
DX: I10 Essential (primary) hypertension (principal)
CPT/HCPCS: 36415; 80053; 82043; 82570

== ENCOUNTER → 2024-11-20 | Outpatient (CLI) | payer MEDICARE, OTHER, SELFPAY ==
--- NOTE | 2024-11-20 10:52 | BI_ITS ---
EXAM: SCRN MAMM (CAD)W/ELVIA BILAT DATE: 11/20/2024 CLINICAL HISTORY: F, Age 84 y/o , SCREENING TECHNIQUE: SCRN MAMM (CAD)W/ELVIA BILAT COMPARISON: Prior exam(s) dated 10/16/2023, 09/22/2022, 09/17/2019. FINDINGS: TISSUE DENSITY: There are scattered areas of fibroglandular density. Bilateral Breast Mammographic Findings: There is a focal asymmetry in the upper-outer left breast. No significant masses, calcifications or other abnormalities are identified in the right breast. BI/SCRN MAMM (CAD)W/ELVIA BILAT IMPRESSION: The focal asymmetry in the upper-outer left breast requires further evaluation. Recommend diagnostic mammogram of the left breast and ultrasound on the day of diagnostic if indicated. OVERALL FINAL ASSESSMENT BI-RADS 0: INCOMPLETE - NEED ADDITIONAL IMAGING EVALUATION. RECOMMENDATION: Additional Views obtained/call backs A letter with findings and recommendations will be mailed to the patient. Reading Location: [id number]
--- NOTE | 2024-11-20 10:52 | BI_ITS ---
EXAM: SCRN MAMM (CAD)W/ELVIA BILAT DATE: 11/20/2024 CLINICAL HISTORY: F, Age 84 y/o , SCREENING TECHNIQUE: SCRN MAMM (CAD)W/ELVIA BILAT COMPARISON: Prior exam(s) dated 10/16/2023, 09/22/2022, 09/17/2019. FINDINGS: TISSUE DENSITY: There are scattered areas of fibroglandular density. Bilateral Breast Mammographic Findings: There is a focal asymmetry in the upper-outer left breast. No significant masses, calcifications or other abnormalities are identified in the right breast. BI/SCRN MAMM (CAD)W/ELVIA BILAT IMPRESSION: The focal asymmetry in the upper-outer left breast requires further evaluation. Recommend diagnostic mammogram of the left breast and ultrasound on the day of diagnostic if indicated. OVERALL FINAL ASSESSMENT BI-RADS 0: INCOMPLETE - NEED ADDITIONAL IMAGING EVALUATION. RECOMMENDATION: Additional Views obtained/call backs A letter with findings and recommendations will be mailed to the patient. Reading Location: [id number]
== END | disposition home or self-care (01) ==
LOC: OPBI 10:50
PROVIDERS: PCP Family Medicine; Referring Provider Family Medicine; Visit Provider Family Medicine
DX: Z12.31 Encounter for screening mammogram for malignant neoplasm of breast (principal); R92.8 Other abnormal and inconclusive findings on diagnostic imaging of breast; N64.89 Other specified disorders of breast
CPT/HCPCS: 77063; 77067

== ENCOUNTER → 2024-11-27 | Outpatient (CLI) | payer MEDICARE, OTHER, SELFPAY ==
--- NOTE | 2024-11-27 09:06 | BI_ITS ---
EXAM: DIAG MAMM W/CAD, UNILAT; BREAST LIMITED UNILATERAL; LT BRST UNILAT ELVIA ADD ON 11/27/2024 CLINICAL HISTORY: 84-year-old female presents for follow-up of the left breast findings seen on examination of 11/20/2024. No family history of breast cancer. Currently on hormone replacement therapy x six-months. TECHNIQUE: DIAG MAMM W/CAD, UNILAT; BREAST LIMITED UNILATERAL; LT BRST UNILAT ELVIA ADD ON. COMPARISON: Prior exam(s) dated 11/20/2024, 10/16/2023, 09/22/2022, 09/17/2019. FINDINGS: MAMMOGRAM: TISSUE DENSITY: There are scattered areas of fibroglandular density. Left breast: Follow-up examination performed for the focal asymmetry seen on examination of 11/20/2024. On the present examination, the focal asymmetry in the upper-outer left breast at middle depth partially effaces. ULTRASOUND: Targeted left breast ultrasound performed of the upper-outer and lower-outer quadrant. There is no sonographic correlate visualized. BI/Lt Brst Unilat Elvia Add On IMPRESSION: The focal asymmetry in the upper-outer left breast is probably benign. Recomme nd short interval six-month follow-up diagnostic mammogram of the left breast for further evaluation. OVERALL FINAL ASSESSMENT BI-RADS 3: PROBABLY BENIGN. RECOMMENDATION: 6 Month Follow-up A letter with findings and recommendations will be mailed to the patient. Reading Location: [id number]
--- NOTE | 2024-11-27 09:06 | BI_ITS ---
EXAM: DIAG MAMM W/CAD, UNILAT; BREAST LIMITED UNILATERAL; LT BRST UNILAT ELVIA ADD ON 11/27/2024 CLINICAL HISTORY: 84-year-old female presents for follow-up of the left breast findings seen on examination of 11/20/2024. No family history of breast cancer. Currently on hormone replacement therapy x six-months. TECHNIQUE: DIAG MAMM W/CAD, UNILAT; BREAST LIMITED UNILATERAL; LT BRST UNILAT ELVIA ADD ON. COMPARISON: Prior exam(s) dated 11/20/2024, 10/16/2023, 09/22/2022, 09/17/2019. FINDINGS: MAMMOGRAM: TISSUE DENSITY: There are scattered areas of fibroglandular density. Left breast: Follow-up examination performed for the focal asymmetry seen on examination of 11/20/2024. On the present examination, the focal asymmetry in the upper-outer left breast at middle depth partially effaces. ULTRASOUND: Targeted left breast ultrasound performed of the upper-outer and lower-outer quadrant. There is no sonographic correlate visualized. BI/DIAG MAMM W/CAD, UNILAT IMPRESSION: The focal asymmetry in the upper-outer left breast is probably benign. Recomme nd short interval six-month follow-up diagnostic mammogram of the left breast for further evaluation. OVERALL FINAL ASSESSMENT BI-RADS 3: PROBABLY BENIGN. RECOMMENDATION: 6 Month Follow-up A letter with findings and recommendations will be mailed to the patient. Reading Location: [id number]
== END | disposition home or self-care (01) ==
PROVIDERS: PCP Family Medicine; Referring Provider Family Medicine; Visit Provider Family Medicine
DX: R92.8 Other abnormal and inconclusive findings on diagnostic imaging of breast (principal)
CPT/HCPCS: 76642; 77061; 77065; G0279

== ENCOUNTER → 2025-03-26 | Outpatient (CLI) | payer MEDICARE, OTHER, SELFPAY ==
[2025-03-26 10:19] LABS: Hematocrit 38.9 % (37-47); Hemoglobin 13.1 g/dL (12.0-15.0); Immature Granulocytes Count 0.010 X10^3/uL (0.0-0.0); Mean Corp Hgb Conc 33.7 g/dL (32-36); Mean Corpuscular Volume 92.8 fL (81-99); Mean Platelet Vol. 10.0 fl (6.2-12.0); NRBC Flagged by Analyzer 0 % (0-5); Platelet Count 235 K/mm3 (150-450); RBC Distribution Width CV 12.1 % (11.6-14.6); RBC Distribution Width SD 42.0 fl (35.1-43.9); Red Blood Count 4.19 M/mm3 (4.2-5.4); White Blood Count 6.9 K/mm3 (4.4-11.0)
[2025-03-26 10:59] LABS: AST(SGOT) 27 U/L (<=31); Alanine Aminotransfer ALT/SGPT 15 U/L (<=34); Albumin, Serum 4.4 g/dL (3.4-4.8); Alkaline Phosphatase 46 U/L (35-104); Anion Gap 13 (5-15); BUN 23 mg/dL (4-19); BUN/Creat Ratio 28.5 RATIO (10-20); Calcium,Total 9.3 mg/dL (7.6-11.0); Carbon Dioxide 25.4 mmol/L (21.0-32.0); Chloride 105 mmol/L (98-108); Cholesterol 205 mg/dL (<=200); Globulin 2.5 g/dL (2.2-4.2); Glucose 89 mg/dL (70-99); Low Density Lipoprotein Calc. 118 mg/dL; Potassium 3.9 mmol/L (3.3-5.1); Triglycerides 72 mg/dL; Very Low Density Lipoprotein 14 mg/dL (5-40); cholesterol:hdl ratio screen 2.76
[2025-03-26 13:22] LABS: Creatinine, Urine (random) 174.00 mg/dL (28.00-217.00); Microalbumin,Random Urine 40.4 mg/L (<20 mg/L)
== END | disposition home or self-care (01) ==
LOC: MFPLAB 08:04
PROVIDERS: PCP Family Medicine; Visit Provider Family Medicine
DX: I10 Essential (primary) hypertension (principal)
CPT/HCPCS: 36415; 80053; 80061; 82043; 82570; 85025